=== PATIENT | female | born 1970 | race Caucasian/White ===

== ENCOUNTER 2024-03-08 08:31 | Outpatient (CLI) | payer MEDICAID ==
[~2024-03-08 08:31] MED LIST: ALBU18HF2 INH; ALBU8.5H17 IH; BECL8.7A6 INH; CYCL10TA26 PO; GUAI120015 PO; LEVO88TA2 PO; LORA-269 PO; PSEU-259 PO; SIMV-342 PO
== END 2024-03-08 23:59 | disposition home or self-care (01) ==
LOC: MRI 08:31
PROVIDERS: ATTEND Physician Assistant
DX: M75.111 Incomplete rotator cuff tear or rupture of right shoulder, not specified as traumatic (principal); S46.101D Unspecified injury of muscle, fascia and tendon of long head of biceps, right arm, subsequent encounter; M89.311 Hypertrophy of bone, right shoulder; M19.011 Primary osteoarthritis, right shoulder; M75.81 Other shoulder lesions, right shoulder; M89.8X1 Other specified disorders of bone, shoulder; X58.XXXD Exposure to other specified factors, subsequent encounter
CPT/HCPCS: 73218; 73221